=== PATIENT | female | born 1975 | race Caucasian/White ===

== ENCOUNTER → 2017-02-03 | Outpatient (CLI) | payer BC ==
[~2017-02-03] MED LIST: PRENATAL VITAMI1 TA5 PO
== END ==
LOC: BHSO 07:59
DX: F90.0 Attention-deficit hyperactivity disorder, predominantly inattentive type (principal)

== ENCOUNTER → 2017-08-15 | Outpatient (CLI) | payer BC | LOC: BHSO 13:11 | DX: F90.0 Attention-deficit hyperactivity disorder, predominantly inattentive type (principal) ==

== ENCOUNTER → 2018-04-07 | Outpatient (CLI) | payer BC | LOC: BHSO 08:02 | DX: F90.0 Attention-deficit hyperactivity disorder, predominantly inattentive type (principal) | CPT/HCPCS: G0463 ==

== ENCOUNTER → 2018-04-14 | Outpatient (CLI) | payer BC | LOC: MC.RAD 14:12 | DX: Z12.31 Encounter for screening mammogram for malignant neoplasm of breast (principal); Z98.82 Breast implant status ==

== ENCOUNTER → 2018-11-19 | Outpatient (CLI) | payer BC | LOC: BHSO 16:20 | DX: F90.0 Attention-deficit hyperactivity disorder, predominantly inattentive type (principal) | CPT/HCPCS: G0463 ==

== ENCOUNTER → 2019-05-06 | Outpatient (CLI) | payer BC | LOC: BHSO 13:31 | DX: F90.0 Attention-deficit hyperactivity disorder, predominantly inattentive type (principal) | CPT/HCPCS: G0463 ==

== ENCOUNTER → 2019-05-06 | Outpatient (CLI) | payer BC | LOC: MC.RAD 15:07 | DX: Z12.31 Encounter for screening mammogram for malignant neoplasm of breast (principal); N64.89 Other specified disorders of breast; Z98.82 Breast implant status ==

== ENCOUNTER → 2019-05-14 | Outpatient (CLI) | payer BC | LOC: MC.RAD 07:30 | DX: N60.01 Solitary cyst of right breast (principal) ==

== ENCOUNTER → 2019-11-04 | Outpatient (CLI) | payer BC | LOC: BHSO 16:00 | DX: F90.0 Attention-deficit hyperactivity disorder, predominantly inattentive type (principal) | CPT/HCPCS: G0463 ==

== ENCOUNTER → 2020-05-04 | Outpatient (CLI) | payer BC | LOC: BHSO 09:52 | DX: F90.0 Attention-deficit hyperactivity disorder, predominantly inattentive type (principal) | CPT/HCPCS: G0463 ==

== ENCOUNTER → 2020-05-18 | Outpatient (CLI) | payer BC | LOC: MC.RAD 15:48 | DX: Z12.31 Encounter for screening mammogram for malignant neoplasm of breast (principal) ==